=== PATIENT | male | born 1970 | race Caucasian/White ===

== ENCOUNTER 2020-09-18 19:34 | Emergency (ER) | payer OTHER ==
[~2020-09-18] VITALS: Ht 177.8 cm; Wt 68.0 kg
[2020-09-18] MEDS ORDERED: NOVOLIN 70100 UNIT/5 SUBQ (19:55)
[2020-09-18 20:40] LABS: ABSOLUTE NEUTROPHILS 3.6 thou/uL (1.4-8.2); BASOPHILS 0.8 % (0.0-2.0); EOSINOPHILS 0.6 % (0.0-3.0); HEMATOCRIT 45.8 % (42.0-52.0); HEMOGLOBIN 15.3 gm/dL (14.0-18.0); LYMPHOCYTES 37.1 % (24.0-44.0); MCH 35.1 pg (26.0-34.0); MCHC 33.4 g/dL (28.0-37.0); MCV 105.2 fL (80.0-100.0); MONOCYTES 9.1 % (1.0-8.0); PLATELET COUNT 178 thou/uL (150-400); POLYS 52.4 % (36.0-66.0); RBC 4.35 mil/uL (4.50-6.00); RDW 14.3 % (10.5-14.5); URINE BILIRUBIN NEGATIVE (Negative); URINE BLOOD NEGATIVE (Negative); URINE CLARITY CLEAR; URINE COLOR YELLOW; URINE GLUCOSE-RANDOM* 3+ (Negative); URINE KETONES TRACE (Negative); URINE LEUKOCYTES-REFLEX NEGATIVE (Negative); URINE NITRITE-REFLEX NEGATIVE (Negative); URINE PROTEIN (DIPSTICK) NEGATIVE (Negative); URINE SPECIFIC GRAVITY 1.015 (1.005-1.035); URINE UROBILINOGEN 0.2 E.U./dl (0.2-1.0); WBC 6.9 thou/uL (4.0-11.0)
[2020-09-18 21:02] LABS: ALBUMIN 3.7 g/dL (3.4-5.0); ANION GAP 16 mmol/L (7-16); BUN 10 mg/dL (7-18); CALCIUM 9.2 mg/dL (8.5-10.1); CHLORIDE 94 mmol/L (98-107); CO2 22 mmol/L (21-32); POTASSIUM 4.8 mmol/L (3.5-5.1); SGOT 217 U/L (15-37); SGPT 75 U/L (16-63); SODIUM 132 mmol/L (136-145); TOTAL BILIRUBIN 0.3 mg/dL (0.2-1.0); TOTAL PROTEIN 7.8 g/dL (6.4-8.2); TROPONIN-I <0.06 ng/mL (<0.06)
[2020-09-18 21:04] LABS: GLUCOSE 654 mg/dL (74-106)
[2020-09-18] MEDS ORDERED: NOVOLIN 70100 UNIT/1 SUBQ (22:13)
[2020-09-19 06:09] VITALS: BP 126/73
--- NOTE | 2020-09-19 13:11 | EKG ---
[place] [address] [facility] [employer] [place] [address] ELECTROCARDIOGRAM REPORT Name: SHON HENDERSON [facility] Room #: [facility] [id number] Admission: 09/18/20 Attend Phys: Discharge: 09/19/20 Date of : 70 Report #: [id number] [facility] ED Test Date: 2020-09-18 Test Time: 21:09:27 Pat Name: SHON HENDERSON Department: Room: Gender: Industrial Eng: HUNG : 1970 Requested By: Urmila Dutta Order Number: [id number] MD: Dejon Bahena Measurements Intervals [place] Rate: 82 P: 73 AK: 184 QRS: -35 QRSD: 86 T: 50 QT: 371 QTc: 434 Interpretive Statements Sinus rhythm Left axis deviation ST elev, probable normal early repol pattern Compared to ECG 09/04/2001 01:42:27 Electronically Signed On 09-19-2020 13:11:44 CDT by Dejon Bahena [email or web address] <ELECTRONICALLY SIGNED> By: Dejon Bahena MD 09/19/20 1311 08 Dejon Bahena MD /VANCE
== END 2020-09-19 06:09 | disposition home or self-care (01) ==
LOC: ER 19:34
PROVIDERS: Emergency Medicine
DX: E11.65 Type 2 diabetes mellitus with hyperglycemia (principal); F10.10 Alcohol abuse, uncomplicated; Z59.0 Homelessness